=== PATIENT | female | born 1995 | race Caucasian/White ===

== ENCOUNTER 2024-02-21 02:32 | Emergency (ER) | payer MEDICAID ==
[~2024-02-21] VITALS: Ht 160 cm; Wt 59.1 kg
[2024-02-21] MEDS: ibuprofen tablet 400 MG TABLET PO ONE (03:26)
[2024-02-21] MEDS: acetaminophen 325mg tablet PO ONE (03:27)
[2024-02-21 03:38] LABS: BILIRUBIN,URINE NEGATIVE (Neg); CLARITY,URINE SLIGHTLY CLOUDY (Clear); COLOR,URINE STRAW (Yellow); GLUCOSE, URINE NEGATIVE (Neg); KETONES,URINE NEGATIVE (Neg); LEUKOCYTE ESTERASE ,URINE SMALL (Neg); NITRITES, URINE NEGATIVE (Neg); OCCULT BLOOD,URINE NEGATIVE (Neg); PH,URINE 6.5 (4.8-8.0); PROTEIN,URINE NEGATIVE (Neg); UROBILINOGEN,URINE 0.2 E.U/dL (0.2-1.0)
[2024-02-21 03:55] LABS: UA COLLECTION TYPE CLN CATCH MIDSTREAM
[2024-02-21 04:39] VITALS: BP 143/99; PULSE 101; RESP 16; TEMP 97.6; O2SAT 99
[2024-02-21 05:29] LABS: SYPHILIS SCREENING TEST POC NEGATIVE (Negative)
[2024-02-21 05:40] LABS: BACTERIA,URINE 2+ /HPF (Neg); MUCUS STRANDS FEW /LPF (Neg); RBC,URINE NONE SEEN /HPF (0-2); SQUAMOUS EPITHELIAL CELL,UR MANY /LPF (FEW); WBC,URINE 0-4 /HPF (0-4)
[2024-02-23 19:09] LABS: CHLAMYDIA TRACHOMATIS, NAA Negative (Negative)
== END 2024-02-21 05:54 | disposition home or self-care (01) ==
LOC: ER 02:34
DX: R10.2 Pelvic and perineal pain (principal)
CPT/HCPCS: 36415; 81001; 86592; 87491; 99283

== ENCOUNTER 2024-02-23 20:22 | Emergency (ER) | payer MEDICAID ==
[~2024-02-23] VITALS: Ht 160 cm; Wt 59.1 kg
[2024-02-23 20:40] VITALS: BP 167/102; PULSE 90; RESP 17; TEMP 98.7; O2SAT 99
[2024-02-23 22:31] LABS: BASOPHILS # (AUTO) 0.1 X10'3 (0-0.2); EOSINOPHILS # (AUTO) 0.4 X10'3 (0-0.9); EOSINOPHILS % (AUTO) 4.2 % (0-6); HEMATOCRIT 34.1 % (35.0-45.0); HEMOGLOBIN 11.4 g/dl (12.0-16.0); LYMPHOCYTES # (AUTO) 2.8 X10'3 (1.1-4.8); LYMPHOCYTES % (AUTO) 31.9 % (21-51); MEAN CORPUSCULAR HGB CONC 33.4 g/dL (33.0-36.5); MEAN CORPUSCULAR VOLUME 86.9 FL (78-98); MEAN PLATELET VOLUME 7.7 FL (7.4-10.4); MONOCYTES # (AUTO) 0.7 X10'3 (0-0.9); MONOCYTES % (AUTO) 7.9 % (2-12); NEUTROPHILS # (AUTO) 4.8 X10'3 (1.8-7.7); PLATELET COUNT 331 X10'3 (140-440); RED BLOOD COUNT 3.93 X10'6 (4.20-5.60); RED CELL DISTRIBUTION WIDTH 14.8 % (11.5-14.5); WHITE BLOOD COUNT 8.8 X10'3 (4.5-11.0)
[2024-02-23 22:43] LABS: ALANINE AMINOTRANSFERASE 24 U/L (12-78); ALBUMIN 3.7 G/DL (3.4-5.0); ALBUMIN/GLOBULIN RATIO 1.2 (1.1-1.5); ALKALINE PHOSPHATASE 69 IU/L (46-116); ANION GAP 8 (8-16); ASPARTATE AMINO TRANSFERASE 33 U/L (10-37); BILIRUBIN,TOTAL 0.3 MG/DL (0.1-1.0); BLOOD UREA NITROGEN 12 MG/DL (7-18); BUN/CREATININE RATIO 13.6 (10.0-20.0); CALCIUM 8.6 MG/DL (8.5-10.1); CHLORIDE 103 MMOL/L (99-107); CREATININE 0.88 MG/DL (0.40-0.90); GLUCOSE 93 MG/DL (70-104); LIPASE 25 U/L (16-77); POTASSIUM 3.4 MMOL/L (3.5-5.1); SODIUM 138 MMOL/L (135-145); TOTAL CARBON DIOXIDE 27.4 MMOL/L (24-32); TOTAL PROTEIN 6.9 G/DL (6.4-8.2); eCRCL 79 ML/MIN; eGFR 77 ML/MIN
[2024-02-23] MEDS ORDERED: polyethylene glycol 3350 17gm powd pack PO ONE (22:55)
[2024-02-23] MEDS ORDERED: bisacodyl 5mg tablet.DR PO SCH (22:55)
== END 2024-02-23 23:33 | disposition left against medical advice (07) ==
LOC: ER 20:22
DX: R45.851 Suicidal ideations (principal); Z20.822 Contact with and (suspected) exposure to COVID-19; F31.9 Bipolar disorder, unspecified
CPT/HCPCS: 36415; 80053; 83690; 85025; 87811; 99285